=== PATIENT | female | born 1945 | race Two or more races ===

== ENCOUNTER 2025-05-26 10:06 | Outpatient (CLI) | payer MEDICARE, OTHER ==
[2025-05-26 10:40] LABS: MEAN PLATELET VOLUME 6.4 FL (7.4-10.4); RED CELL DISTRIBUTION WIDTH 13.6 % (11.5-14.5)
[2025-05-26 11:18] LABS: CHOL/HDL RATIO 4.8 (0.00-4.99); CREATININE 1.03 MG/DL (0.40-0.90); LDL CHOLESTEROL 143 MG/DL (50-100); TOTAL CARBON DIOXIDE 26.4 MMOL/L (24-32); eGFR 52 ML/MIN
== END 2025-05-26 23:59 | disposition home or self-care (01) ==
LOC: RAD 10:06
PROVIDERS: ATTEND Student in an Organized Health Care Education/Training Program
DX: E11.9 Type 2 diabetes mellitus without complications (principal); E78.49 Other hyperlipidemia; I10 Essential (primary) hypertension; E78.9 Disorder of lipoprotein metabolism, unspecified; R26.89 Other abnormalities of gait and mobility
CPT/HCPCS: 36415; 80053; 80061; 82607; 82746; 83036; 85025